=== PATIENT | female | born 1965 | race African-American/Black ===

== ENCOUNTER 2016-08-06 18:31 | Emergency (ER) | payer OTHER ==
[~2016-08-06] VITALS: Ht 170.2 cm; Wt 79.5 kg
[2016-08-06 18:37] VITALS: Ht 170.2 cm; Wt 79.5 kg
[2016-08-06] MEDS ORDERED: IBUPROFEN 600 MG TAB PO ONE (21:00)
--- NOTE | 2016-08-06 21:46 | RADRPT ---
PROCEDURE: US Lower extremity Venous. CLINICAL INDICATION: Right leg edema TECHNIQUE: Multiple sonographic images of the right lower extremity deep venous system was obtaine d utilizing grayscale, color-flow, compressive sonography and doppler imaging with augmentation. Th e images were reviewed on a PACS workstation. COMPARISON: None. FINDINGS: There is normal compressibility and flow within the right common femoral, femoral, posterior tibial, peroneal and popliteal veins. RPTAT: AA IMPRESSION: No sonographic evidence for deep venous thrombosis. .Basilio Ignacio MD, MD Date Time Electronically viewed and signed by .Basilio Ignacio MD, on 08/06/2016 21:46 .S/
--- NOTE | 2016-08-06 22:32 | RADRPT ---
PROCEDURE: XR Foot. CLINICAL INDICATION: Swelling. TECHNIQUE: Three views of the right foot. COMPARISON: None available. FINDINGS: No fracture or dislocation is identified. The joint spaces are preserved. There is no significant soft tissue swelling. No cortical lucency or periosteal reaction is identified to suggest osteomyeli tis. There is no soft tissue gas per IMPRESSION: 1. No fracture or dislocation of the right foot. 2. No soft tissue gas or evidence of osteomyelitis. RPTAT: HTAR .Teddy Marlow MD, Date Time Electronically viewed and signed by .Teddy Marlow MD, on 08/06/2016 22:32 .R/
--- NOTE | 2016-08-06 22:33 | RADRPT ---
PROCEDURE: XR Ankle. CLINICAL INDICATION: Right ankle swelling. TECHNIQUE: Three views of the right ankle. COMPARISON: None available. FINDINGS: No fracture or dislocation is identified. The ankle mortise appears intact in this nonstressed stud y. The joint spaces are preserved. There is no significant soft tissue swelling. IMPRESSION: 1. No fracture or dislocation of the right ankle. RPTAT: HTAR .Teddy Marlow MD, MD Date Time Electronically viewed and signed by .Teddy Marlow MD, on 08/06/2016 22:33 .R/
[2016-08-06] MEDS ORDERED: IBUP-1542 PO (22:45)
[2016-08-06] MEDS ORDERED: DOXY100T20 PO (22:45)
[2016-08-06 23:04] VITALS: BP 140/78; PULSE 84; RESP 20
--- NOTE | 2016-08-06 23:39 | ERD ---
ER Documentation Chief Complaint Date/Time DATE: 08/06/16 TIME: 23:34 Chief Complaint Pt with R ankle pain, and swellingsince last night, worst today. No injury HPI This patient is a 42-year-old female with past medical history of anemia presenting to the emergency department for right medial ankle pain on the medial malleolus which began 2 days ago suddenly. Symptoms are exacerbated with ambulation. Patient has no history of gout, trauma, oral contraceptive use , or smoking. She states her pain as an intense ache and symptoms are constant. She has taken no medication for relief of symptoms. She denies fevers, chills, significant redness, or other symptoms at this time. ROS All systems reviewed and are negative except as per history of present illness. Medications Home Meds Active Scripts Ibuprofen* (Motrin*) 600 Mg Tab, 600 MG PO Q6, #30 TAB Prov:SELENE PONCE PA-C 08/06/16 Doxycycline Hyclate* (Doxycycline Hyclate*) 100 Mg Tablet.dr, 100 MG PO BID for 10 Days, #20 TAB Prov:SELENE PONCE PA-C 08/06/16 PMhx/Soc Hx Alcohol Use: No Hx Substance Use: No Hx Tobacco Use: No Smoking Status: Never smoker FmHx Noncontributory for chief complaint Physical Exam Vitals Vital Signs Date Time Temp Pulse Resp B/P Pulse Ox O2 Delivery O2 Flow Rate FiO2 08/06/16 23:04 84 20 140/78 100 Room Air 08/06/16 18:37 97.7 99 18 124/77 99 Physical Exam Const: The patient is resting comfortably in a wheelchair and is nontoxic appearing Head: Atraumatic Eyes: Normal Conjunctiva ENT: Normal External Ears, Nose and Mouth. Neck: Full range of motion..~ No meningismus. Resp: Clear to auscultation bilaterally Cardio: Regular rate and rhythm, no murmurs Abd: Soft, non tender, non distended. Normal bowel sounds Skin: No petechiae or rashes Back: No midline or flank tenderness Ext: There is some tenderness palpation of the medial malleolus on the right ankle but no deformity noted. There is edema noted but there is no ecchymosis. There is limited range of motion of the right ankle secondary to pain Neur: Awake and alert Psych: Normal Mood and Affect Results 24 hrs Current Medications Medications (Trade) Dose Ordered Sig/Cheikh Route PRN Reason Start Time Stop Time Status Last Admin Dose Admin Ibuprofen (Motrin) 600 mg ONCE ONCE PO 08/06/16 21:00 08/06/16 21:01 DC 08/06/16 22:02 PROCEDURE: XR Ankle. CLINICAL INDICATION: Right ankle swelling. TECHNIQUE: Three views of the right ankle. COMPARISON: None available. FINDINGS: No fracture or dislocation is identified. The ankle mortise appears intact in this nonstressed study. The joint spaces are preserved. There is no significant soft tissue swelling. IMPRESSION: 1. No fracture or dislocation of the right ankle. RPTAT: HTAR .Teddy Marlow MD, Date Time Electronically viewed and signed by .Teddy Marlow MD, MD on 08/06/2016 22:33 .R/ CC: SELENE PONCE PA-C PROCEDURE: US Lower extremity Venous. CLINICAL INDICATION: Right leg edema TECHNIQUE: Multiple sonographic images of the right lower extremity deep venous system was obtained utilizing grayscale, color-flow, compressive sonography and doppler imaging with augmentation. The images were reviewed on a PACS workstation. COMPARISON: None. FINDINGS: There is normal compressibility and flow within the right common femoral, femoral, posterior tibial, peroneal and popliteal veins. RPTAT: AA IMPRESSION: No sonographic evidence for deep venous thrombosis. .Basilio Ignacio MD, MD Date Time Electronically viewed and signed by .Basilio Ignacio MD, MD on 08/06/2016 21: 46 .S/ CC: SELENE PONCE PA-C PROCEDURE: XR Foot. CLINICAL INDICATION: Swelling. TECHNIQUE: Three views of the right foot. COMPARISON: None available. FINDINGS: No fracture or dislocation is identified. The joint spaces are preserved. There is no significant soft tissue swelling. No cortical lucency or periosteal reaction is identified to suggest osteomyelitis. There is no soft tissue gas per IMPRESSION: 1. No fracture or dislocation of the right foot. 2. No soft tissue gas or evidence of osteomyelitis. RPTAT: HTAR .Teddy Marlow MD, MD Date Time Electronically viewed and signed by .Teddy Marlow MD, MD on 08/06/2016 22:32 .R/ CC: SELENE PONCE PA-C/[facility] 42-year-old female presents to the emergency department secondary to complaints of right medial malleolus pain and swelling. On physical examination the vitals are within normal limits. There is some tenderness palpation of the medial malleolus with limited range of motion secondary to pain. The patient was given ibuprofen in the department and she was feeling improved on reevaluation. Imaging was negative for DVT or fracture or osteomyelitis and was interpreted by radiologist. Differential diagnoses included but were not limited to gout, cellulitis, DVT, fracture, and others. The patient was stable for management after workup in the department. Imaging results were shared with the patient. All questions and concerns were addressed. Strict ER return precautions were discussed. The patient is to have close follow-up with a primary care physician in the next 1-2 days. Crutches were given in the department and the patient was properly trained on them. The patient was advised that she may need follow-up with an soil fertility extension specialist if the pain does not resolve. Departure Diagnosis: Primary Impression: Ankle pain, right Additional Impression: Cellulitis Condition: Fair Patient Instructions: What Are Ankle Sprains?, Cellulitis Referrals: COMM[facility] YOU HAVE RECEIVED A MEDICAL SCREENING EXAM AND THE RESULTS INDICATE THAT YOU DO NOT HAVE A CONDITION THAT REQUIRES URGENT TREATMENT IN THE EMERGENCY DEPARTMENT. FURTHER EVALUATION AND TREATMENT OF YOUR CONDITION CAN WAIT UNTIL YOU ARE SEEN IN YOUR DOCTORS OFFICE WITHIN THE NEXT 1-2 DAYS. IT IS YOUR RESPONSIBILITY TO MAKE AN APPOINTMENT FOR FOLOW-UP CARE. IF YOU HAVE A PRIMARY DOCTOR --you should call your primary doctor and schedule an appointment IF YOU DO NOT HAVE A PRIMARY DOCTOR YOU CAN CALL OUR PHYSICIAN REFERRAL HOTLINE AT IF YOU CAN NOT AFFORD TO SEE A PHYSICIAN YOU CAN CHOSE FROM THE FOLLOWING FORMERLY [facility], [facility] [address] [facility] [address] [facility] [address] [facility] [address] [facility] [address] [facility]. [facility] [address] Additional Instructions: Follow up with your PCP within the next 1-3 days for a repeat evaluation and a possible referral to a specialist, if required. Return the the emergency department immediately if symptoms worsen or change. If you have any questions regarding medications, ask your pharmacist or us before you leave. If any adverse reactions, occur while taking your medications, discontinue the treatment and return to the emergency department immediately. If any new or worsening symptoms, uncontrolled fevers, or other unexplained symptoms occur, return to the emergency department immediately. Take your medications as directed, and complete the entire course of treatment. SELENE PONCE PA-C August 06, 2016 23:39
== END 2016-08-06 23:05 | disposition home or self-care (01) ==
LOC: FTE 18:31
DX: M25.571 Pain in right ankle and joints of right foot (principal); L03.115 Cellulitis of right lower limb
CPT/HCPCS: 73610; 73630; 93971; Z7502; Z7610

== ENCOUNTER 2017-03-21 08:06 | Emergency (ER) | END 2017-03-21 10:35 | disposition home or self-care (01) ==